=== PATIENT | female | born 1950 | race Caucasian/White ===

== ENCOUNTER 2022-12-06 08:26 | Day surgery (SDC) | payer OTHER ==
[~2022-12-06] VITALS: Ht 144.8 cm; Wt 60.3 kg
[~2022-12-06 08:26] MED LIST: ATACAND32 MG PO; CRESTOR10 MG PO; SYNTHROID50 MCG PO
== END 2022-12-06 16:40 | disposition home or self-care (01) ==
LOC: CIR.AMB 08:26
PROVIDERS: ATTEND Orthopaedic Surgery
DX: M77.11 Lateral epicondylitis, right elbow (principal); Z88.0 Allergy status to penicillin; I10 Essential (primary) hypertension; E03.9 Hypothyroidism, unspecified; Z87.891 Personal history of nicotine dependence